=== PATIENT | male | born 1985 | race Caucasian/White ===

== ENCOUNTER 2018-11-03 09:08 | Outpatient (CLI) | payer MEDICARE, MEDICAID, SELFPAY ==
[2018-11-03 15:01] LABS: VALPROIC ACID 61.8 ug/mL (50-100)
[2018-11-03 15:03] LABS: Ammonia 44 umol/L (11-32)
[2018-11-03 15:55] LABS: ALT 16 U/L (12-78); AST 15 U/L (15-37); Albumin 4.2 g/dL (3.4-5.0); Alkaline Phosphatase 46 U/L (46-116); Anion Gap 9.7 mmol/L (3-11); BUN 19 mg/dL (7-18); Bilirubin, Total 0.3 mg/dL (0.2-1.0); CO2 29.3 mmol/L (21.0-32.0); CREATININE 0.79 mg/dL (0.70-1.30); Calcium 9.6 mg/dL (8.5-10.1); Chloride 103 mmol/L (98-107); Glucose 95 mg/dL (70-100); Potassium 4.5 mmol/L (3.5-5.1); Sodium 142 mmol/L (136-145); Total Protein 8.4 g/dL (6.4-8.2)
[2018-11-05 11:14] LABS: Lamotrigine 13.9 mcg/mL (2.5 - 15.0)
[2018-11-05 11:26] LABS: Levetiracetam 45.2 mcg/mL
== END 2018-11-03 09:28 ==
PROVIDERS: PCP Family Medicine; Visit Provider Psychiatry & Neurology Neurology
DX: G40.919 Epilepsy, unspecified, intractable, without status epilepticus (principal); Z51.81 Encounter for therapeutic drug level monitoring; Z79.899 Other long term (current) drug therapy
CPT/HCPCS: 36415; 80053; 80175; 80164; 80177; 82140; 85025

== ENCOUNTER 2022-04-15 03:32 | Outpatient (CLI) | payer MEDICARE, MEDICAID, SELFPAY ==
[2022-04-15 14:48] LABS: Abs Immature Grans 0.01 10^3/uL (0.0-0.06); Absolute Basophil Count 0.03 10^3/uL (0.0-0.2); Absolute Eosinophil Count 0.12 10^3/uL (0.0-0.7); Absolute Lymphocyte Count 2.65 10^3/uL (1.2-3.4); Absolute Monocyte Count 0.45 10^3/uL (0.1-0.8); Absolute Neutrophil Count 3.17 10^3/uL (1.2-6.7); Basophils % 0.5; Eosinophils % 1.9; HCT 40.1 % (40.0-50.0); HGB 13.1 g/dL (13.5-17.5); Immature Grans % 0.2; Lymphocytes % 41.2; MCH 31.7 pg (27.0-33.0); MCHC 32.7 % (32.0-36.0); MCV 97 fL (80-95); MPV 10.8 fL (8.0-11.0); Neutrophils % 49.2; Platelet Count 193 10^3/uL (130-400); RBC 4.13 10^6/uL (4.36-5.78); RDW-SD 46.5 fL; WBC 6.43 10^3/uL (4.4-10.8)
[2022-04-15 14:58] LABS: Ammonia 16 umol/L (11-32)
[2022-04-15 15:03] LABS: ALT 22 U/L (16-63); AST 18 U/L (15-37); Albumin 3.8 g/dL (3.4-5.0); Alkaline Phosphatase 43 U/L (46-116); Anion Gap 5.2 mmol/L (3-11); BUN 10 mg/dL (7-18); Bilirubin, Total 0.3 mg/dL (0.2-1.0); CO2 33.8 mmol/L (21.0-32.0); CREATININE 0.7 mg/dL (0.70-1.30); Calcium 8.9 mg/dL (8.5-10.1); Chloride 104 mmol/L (98-107); Estimated GFR 121.71 (mL/min/1.73m2); Glucose 72 mg/dL (74-106); Potassium 3.9 mmol/L (3.5-5.1); Sodium 143 mmol/L (136-145); VALPROIC ACID 55.6 ug/mL
[2022-04-18 10:44] LABS: Levetiracetam 39.1 mcg/mL
[2022-04-19 12:50] LABS: Lamotrigine 11.1 mcg/mL (2.5 - 15.0)
== END 2022-04-15 03:33 | disposition home or self-care (01) ==
LOC: LBO 03:32
PROVIDERS: Psychiatry & Neurology Neurology; PCP Family Medicine; Visit Provider Family Medicine
DX: G40.111 Localization-related (focal) (partial) symptomatic epilepsy and epileptic syndromes with simple partial seizures, intractable, with status epilepticus (principal)
CPT/HCPCS: 36415; 80053; 80175; 80164; 80177; 82140; 85025

== ENCOUNTER 2023-06-15 12:08 | Emergency (ER) | payer MEDICARE, MEDICAID, SELFPAY ==
[2023-06-15 12:30] VITALS: BP 99/59; PULSE 68; RESP 18; TEMP 36.4; O2SAT 99
--- NOTE | 2023-06-15 13:15 | DI.RAD_ITS ---
Exam(s) XR FOOT RT COMPLETE EXAM: XR FOOT RT COMPLETE CLINICAL HISTORY: Injury. TECHNIQUE: 2D digital imaging was performed. Three views. COMPARISON: No exams were available for comparison FINDINGS: BONES: No acute fracture is present. No bony destructive lesion is seen. JOINTS: No dislocation present. SOFT TISSUE: Dorsal swelling. IMPRESSION: No acute bony abnormality DATA REPOSITORY: RADIATION DOSE DELIVERED:
--- NOTE | 2023-06-15 14:54 | ED.GENADUL_ITS ---
Discharge Plan Disposition Patient Disposition: Home Condition: Stable Discharge Details Clinical Impression: Contusion of foot Primary Care Provider: Osorio Kulkarni ED Provider: Flavia Nicholson Home Meds and New Rx's Prescriptions: No Action levetiracetam [Keppra] 500 MG tablet 2 tab PO BID Qty: 360 Rx Instructions: [address] IVORY divalproex 250 MG tablet,delayed release (DR/EC) 250 - 500 mg PO BID Qty: 180 Rx Instructions: 250 mg AM; 500 mg PM needs to be trade name drug diphenhydramine HCl [Benadryl] 25 MG capsule 25 mg PO Q6H PRN Qty: 30 5RF Rx Instructions: 1-2 pills q 6 hr prn nasal congestion or allergy lorazepam 2 MG tablet 1 - 2 mg PO DAILY PRNQty: 20 Rx Instructions: Give 0.5 tab for pre-seizure activity and 1 tab either for active seizing or prior to dentist lamotrigine 100 mg tablet 100 mg PO BID Qty: 180 3RF Rx Instructions: 1 TAB BID levocarnitine tartrate [L-Carnitine (tartrate)] 500 mg capsule 500 mg PO BID Qty: 180 3RF polyethylene glycol 3350 [Miralax] 17 gram powder in packet 17 gm PO DAILY PRN (Reason: constipation) Qty: 30 6RF cholecalciferol (vitamin D3) [Vitamin D3] 50 mcg (2,000 unit) capsule 2,000 unit PO DAILY Qty: 90 3RF melatonin 3 mg tablet 3 mg PO HS PRN (Reason: sleep) Qty: 90 3RF Discharge Instructions Instructions: Foot Contusion (ED) Additional Instructions: No evidence of broken bones or fracture on the X ray. Please take Tylenol or Ibuprofen with food every 4-6 hours as needed for pain and swelling. follow up with primary care provider in 3-5 days. Return to ED sooner if any worsening or concerns. Increase oral fluids. Rest, Ice, Compression, elevation. Referrals: Osorio Kulkarni MD [Primary Care Provider] - 3 days Discharge Data Discharge Date/Time-TO BE ENTERED AT DEPARTURE: 06/15/23 16:02 HPI General Mode of arrival: wheelchair . Date/Time Provider Initiated Documentation: 06/15/23 12:28 . Limitations to Documentation: altered mental status and physical limitation . Information obtained by: patient, family (Caregiver), RN notes reviewed and old records reviewed . HPI Narrative: 38 year old developmentaly delayed male presents to the ED with foot bruise. Unknown injury. Has been guarding his foot. Nonverbal. Related Data Home Medications Medication Instructions Recorded Confirmed levetiracetam 500 mg tablet 2 tab PO BID #360 tab-caps 12/05/12 08/28/22 (Keppra) divalproex 250 mg tablet,delayed 250 - 500 mg PO BID #180 tab-caps 10/30/16 08/28/22 release diphenhydramine HCl 25 mg capsule 25 mg PO Q6H PRN #30 tab-caps 11/05/17 08/28/22 (Benadryl) lorazepam 2 mg tablet 1 - 2 mg PO DAILY PRN #20 tab-caps 12/24/17 08/28/22 lamotrigine 100 mg tablet 100 mg PO BID #180 tab-caps 05/08/18 08/28/22 levocarnitine tartrate 500 mg 500 mg PO BID #180 tab-caps 05/08/18 08/28/22 capsule (L-Carnitine (tartrate)) polyethylene glycol 3350 17 gram 17 gm PO DAILY PRN constipation 06/07/18 08/28/22 oral powder packet (Miralax) #30 ea cholecalciferol (vitamin D3) 50 2,000 unit PO DAILY #90 caps 01/06/23 mcg (2,000 unit) capsule (Vitamin D3) melatonin 3 mg tablet 3 mg PO HS PRN sleep #90 tabs 04/28/23 Previous Rx's Medication Instructions Recorded diphenhydramine HCl 25 mg capsule 25 mg PO Q6H PRN #30 tab-caps 11/05/17 (Benadryl) lamotrigine 100 mg tablet 100 mg PO BID #180 tab-caps 05/08/18 levocarnitine tartrate 500 mg 500 mg PO BID #180 tab-caps 05/08/18 capsule (L-Carnitine (tartrate)) polyethylene glycol 3350 17 gram 17 gm PO DAILY PRN constipation 06/07/18 oral powder packet (Miralax) #30 ea cholecalciferol (vitamin D3) 50 2,000 unit PO DAILY #90 caps 01/06/23 mcg (2,000 unit) capsule (Vitamin D3) melatonin 3 mg tablet 3 mg PO HS PRN sleep #90 tabs 04/28/23 Allergies Allergy/AdvReac Type Severity Reaction Status Date / Time lactose Allergy Unknown Verified 06/04/22 09:12 General Stated Complaint: Orthopedic EDIN: 4 Review of Systems Musculoskeletal Musculoskeletal: Reports as per HPI PFSH All Active Problems (Updated 06/15/23 @ 15:42 by Flavia Nicholson NP) Contusion of foot (Acute) Vaccine for diphtheria-tetanus (Acute) Weight loss, abnormal (Chronic) Abnormal weight loss (Chronic 02/13/12) Acute dermatitis (Chronic 10/15/13) on hands Anemia (Chronic 05/07/13) Autistic disorder of childhood onset (Chronic) developmental delay, 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) Scoliosis (Chronic 06/17/14) Vitamin D deficiency (Chronic 02/16/13) Social History Smoking/Tobacco Use Status: Never Smoking risk assessment performed?: Yes Alcohol Intake: never Do you feel safe at home: Yes Do you feel safe in your relationship?: Yes Exam Extrem Right lower extremity: foot Details: normal capillary refill Course Vital Signs Vital signs: Vital Signs Temperature 36.4 C L 06/15/23 12:30 Pulse 68 06/15/23 12:30 Respiratory Rate 18 06/15/23 12:30 Blood Pressure 99/59 L 06/15/23 12:30 Pulse Oximetry 99 06/15/23 12:30 Temperature 36.4 C L 06/15/23 12:30 Temperature Source Temporal Artery Scan 06/15/23 12:30 Pulse 68 06/15/23 12:30 Respiratory Rate 18 06/15/23 12:30 Respiratory Effort Normal 06/15/23 14:35 Respiratory Depth Normal 06/15/23 14:35 Respiratory Pattern Normal 06/15/23 14:35 Blood Pressure 99/59 L 06/15/23 12:30 Pulse Oximetry 99 06/15/23 12:30 Oxygen Delivery Method Room Air 06/15/23 12:30 Oxygen Flow Rate 0 06/15/23 12:30
--- NOTE | 2023-06-15 15:35 | DI.VRAD_ITS ---
PROCEDURE INFORMATION: Exam: XR Right Foot Exam date and time: 06/15/2023 2:42 PM Age: 38 years old Clinical indication: Injury or trauma; Other: Unspecified; Blunt trauma; Patient HX: Right foot injury TECHNIQUE: Imaging protocol: Radiologic exam of the right foot. Views: 3 or more views. COMPARISON: No relevant prior studies available. FINDINGS: Bones/joints: There is no evidence of acute fracture in any of the visualized osseous structures.. There is no evidence of malalignment or dislocation of any visualized joint. Soft tissues: Normal. IMPRESSION: 1. There is no evidence of acute fracture in any of the visualized osseous structures.. 2. There is no evidence of malalignment or dislocation of any visualized joint. Dictated and Authenticated by: Keyla Sullivan MD. Ordering:JORGE Alejandro MD
== END 2023-06-15 16:02 | disposition home or self-care (01) ==
PROVIDERS: Emergency Provider Registered Nurse Emergency; PCP Family Medicine
DX: S90.32XA Contusion of left foot, initial encounter (principal); R62.50 Unspecified lack of expected normal physiological development in childhood; X58.XXXA Exposure to other specified factors, initial encounter
CPT/HCPCS: 99283; 73630

== ENCOUNTER 2023-09-09 14:57 | Outpatient (CLI) | payer MEDICARE, MEDICAID, SELFPAY ==
[2023-09-09 13:30] LABS: Abs Immature Grans 0.02 10^3/uL (0.0-0.06); Absolute Basophil Count 0.02 10^3/uL (0.0-0.2); Absolute Eosinophil Count 0.06 10^3/uL (0.0-0.7); Absolute Monocyte Count 0.59 10^3/uL (0.1-0.8); Absolute Neutrophil Count 4.79 10^3/uL (1.2-6.7); Basophils % 0.2; Eosinophils % 0.7; HCT 40.4 % (40.0-50.0); HGB 13.5 g/dL (13.5-17.5); Immature Grans % 0.2; Lymphocytes % 33.8; MCH 31.3 pg (27.0-33.0); MCHC 33.4 % (32.0-36.0); MCV 94 fL (80-95); MPV 10.7 fL (8.0-11.0); Monocytes % 7.1; Platelet Count 256 10^3/uL (130-400); RBC 4.32 10^6/uL (4.36-5.78); RDW 13.2 % (11.8-14.1); WBC 8.28 10^3/uL (4.4-10.8)
[2023-09-09 14:09] LABS: ALT 19 U/L (16-63); AST 12 U/L (15-37); Albumin 3.7 g/dL (3.4-5.0); Alkaline Phosphatase 54 U/L (46-116); Anion Gap 8.4 mmol/L (3-11); BUN 14 mg/dL (7-18); Bilirubin, Total 0.3 mg/dL (0.2-1.0); CO2 28.6 mmol/L (21.0-32.0); CREATININE 0.9 mg/dL (0.70-1.30); Calcium 9.1 mg/dL (8.5-10.1); Calculated LDL 122 mg/dL (<100); Chloride 106 mmol/L (98-107); Cholesterol 183 mg/dL (<200); Estimated GFR 112.11 (mL/min/1.73m2); Glucose 73 mg/dL (74-106); HDL Cholesterol 56 mg/dL (40-60); Potassium 3.6 mmol/L (3.5-5.1); Sodium 143 mmol/L (136-145); Total Protein 7.9 g/dL (6.4-8.2); Triglyceride 27 mg/dL (<150)
== END 2023-09-09 14:58 | disposition home or self-care (01) ==
LOC: LBO 14:57
PROVIDERS: PCP Family Medicine; Visit Provider Family Medicine
DX: D64.9 Anemia, unspecified (principal); E78.5 Hyperlipidemia, unspecified; R10.9 Unspecified abdominal pain
CPT/HCPCS: 36415; 80053; 80061; 85025

== ENCOUNTER 2023-10-06 03:39 | Outpatient (CLI) | payer MEDICARE, MEDICAID, SELFPAY ==
[2023-10-06 17:44] LABS: VALPROIC ACID 60.5 ug/mL
== END 2023-10-06 03:40 | disposition home or self-care (01) ==
LOC: LBO 03:39
PROVIDERS: PCP Family Medicine; Visit Provider Nurse Practitioner Primary Care
DX: G40.919 Epilepsy, unspecified, intractable, without status epilepticus (principal); Z51.81 Encounter for therapeutic drug level monitoring; Z79.899 Other long term (current) drug therapy
CPT/HCPCS: 36415; 80164

== ENCOUNTER → 2023-12-18 09:51 | Outpatient (BNVA) | payer MEDICARE, MEDICAID, SELFPAY | PROVIDERS: PCP Family Medicine; Referring Provider Family Medicine; Visit Provider Student in an Organized Health Care Education/Training Program | DX: M25.371 Other instability, right ankle (principal); M25.372 Other instability, left ankle; M24.874 Other specific joint derangements of right foot, not elsewhere classified; M24.875 Other specific joint derangements left foot, not elsewhere classified | CPT/HCPCS: 99214 ==

== ENCOUNTER 2024-11-11 09:17 | Outpatient (CLI) | payer MEDICARE, MEDICAID, SELFPAY ==
[2024-11-11 15:13] LABS: HCT 41.6 % (40.0-50.0); MCH 32.3 pg (27.0-33.0); MCHC 33.7 % (32.0-36.0); MCV 96 fL (80-95); MPV 10.8 fL (8.0-11.0); Platelet Count 268 10^3/uL (130-400); RBC 4.33 10^6/uL (4.36-5.78); RDW 13.9 % (11.8-14.1); RDW-SD 49.2 fL; WBC 6.84 10^3/uL (4.4-10.8)
[2024-11-11 16:01] LABS: ALT 30 U/L (16-63); AST 16 U/L (15-37); Albumin 3.7 g/dL (3.4-5.0); Alkaline Phosphatase 52 U/L (46-116); Anion Gap 9.9 mmol/L (3-11); BUN 21 mg/dL (7-18); Bilirubin, Total 0.2 mg/dL (0.2-1.0); CO2 28.1 mmol/L (21.0-32.0); Chloride 106 mmol/L (98-107); Estimated GFR 111.42 (mL/min/1.73m2); Glucose 86 mg/dL (74-106); Potassium 4.5 mmol/L (3.5-5.1); Sodium 144 mmol/L (136-145); Total Protein 7.9 g/dL (6.4-8.2); Vitamin B12 763 pg/mL (193-986)
== END 2024-11-11 09:18 | disposition home or self-care (01) ==
LOC: LBO 05-27 09:17
PROVIDERS: PCP Family Medicine; Visit Provider Family Medicine
DX: E83.42 Hypomagnesemia (principal); R53.83 Other fatigue; R10.9 Unspecified abdominal pain; D64.9 Anemia, unspecified
CPT/HCPCS: 36415; 80053; 85027; 82607; 83735